=== PATIENT | female | born 1940 | race Caucasian/White ===

== ENCOUNTER → 2021-02-17 13:35 | Outpatient (BNVA) | payer MEDICARE, SELFPAY | PROVIDERS: PCP Internal Medicine; Visit Provider Hospitalist | DX: J41.0 Simple chronic bronchitis (principal); J40 Bronchitis, not specified as acute or chronic; I50.32 Chronic diastolic (congestive) heart failure | CPT/HCPCS: Q3014 ==

== ENCOUNTER 2021-03-10 17:49 | Outpatient (REF) | payer MEDICARE, SELFPAY ==
--- NOTE | 2021-03-10 17:52 | PFT_ITS ---
The patient was referred for pulmonary function test. However, the patient was not able to perform any adequate maneuvers. So no test report is available. MD GENOVEVA Javed/ED / [id number]
== END 2021-03-10 17:50 | disposition home or self-care (01) ==
LOC: HO.RESP 17:49
PROVIDERS: Visit Provider Hospitalist
DX: Z13.89 Encounter for screening for other disorder (principal)

== ENCOUNTER → 2021-04-11 14:50 | Outpatient (BNVA) | payer MEDICARE, SELFPAY | PROVIDERS: PCP Internal Medicine; Visit Provider Hospitalist | DX: J41.0 Simple chronic bronchitis (principal); J40 Bronchitis, not specified as acute or chronic; I50.32 Chronic diastolic (congestive) heart failure | CPT/HCPCS: 99212 ==